=== PATIENT | male | born 1995 | race Two or more races ===

== ENCOUNTER 2017-04-01 17:20 | Emergency (ER) | payer OTHER ==
[~2017-04-01] VITALS: Ht 182.9 cm; Wt 102.1 kg
[2017-04-01 17:44] VITALS: BP 141/79
== END 2017-04-01 18:08 | disposition home or self-care (01) ==
LOC: ER 17:30
DX: F41.9 Anxiety disorder, unspecified (principal); F32.9 Major depressive disorder, single episode, unspecified; Z76.0 Encounter for issue of repeat prescription

== ENCOUNTER 2017-05-02 21:18 | Emergency (ER) | payer OTHER ==
[~2017-05-02] VITALS: Ht 185.4 cm; Wt 104.3 kg
[2017-05-02 21:30] VITALS: BP 159/88
== END 2017-05-03 02:09 | disposition home or self-care (01) ==
LOC: ER 21:18
DX: F41.9 Anxiety disorder, unspecified (principal)

== ENCOUNTER 2018-11-22 04:08 | Inpatient (IN) | payer OTHER ==
[2018-11-22] VITALS (10 sets, daily range): BP systolic 93–105; BP diastolic 46–69
[~2018-11-22] VITALS: Ht 170.2 cm; Wt 104.3 kg
[2018-11-22] MEDS ORDERED: MIDAZOLAM DRIP 50 mg/50mL 50 ML IV ONE (04:16)
[2018-11-22] MEDS ORDERED: MIDAZOLAM HCL 5 MG/ML-1ML VIAL ONE (04:16)
[2018-11-22] MEDS ORDERED: PROPOFOL 100 ML IV ONE (04:28)
[2018-11-22] MEDS: MIDAZOLAM DRIP 50 mg/50mL 50 ML IV SCH ×4 (04:39→21:58)
[2018-11-22] MEDS: PROPOFOL 100 ML IV SCH ×5 (04:45→18:37)
[2018-11-22] MEDS ORDERED: MIDAZOLAM HCL 5 MG/ML-1ML VIAL IV ONE (04:45)
[2018-11-22] MEDS ORDERED: ETOMIDATE (2MG/ML) 20ML VIAL IV ONE (04:45)
[2018-11-22] MEDS ORDERED: SUCCINYLCHOLINE CHLORIDE 20 MG/ML 10ML VIAL IV ONE (04:45)
--- NOTE | 2018-11-22 06:34 | NUR ---
RT NOTE: FIO2 DECREASED TO .45 FROM .50. PT. TOLERATING WELL. RN YENNIFER PISANO.
[2018-11-22 06:51] LABS: Basophils # (auto) 0 uL; Basophils % (auto) 0.2 % (0.0-2.0); Eosinophils # (auto) 0 uL; Hematocrit 44.2 % (41.0-53.0); Hemoglobin 14.5 g/dL (13.5-17.5); Lymphocytes % (auto) 4.7 % (10.0-50.0); Mean Corpuscular Hemoglobin 30.3 pg (28.0-32.0); Mean Corpuscular Hgb Conc. 32.9 g/dL (32.0-36.0); Monocytes # (auto) 1.3 uL; Monocytes % (auto) 6.5 % (0.0-12.0); Neutrophils # (auto) 18.3 uL; Neutrophils % (auto) 88.6 % (37.0-80.0); Platelet Count (auto) 230 10^3/uL (140-450); Red Cell Distribution Width 14.2 % (11.8-14.3); White Blood Cell 20.6 10^3/uL (4.4-10.8)
[2018-11-22 07:08] LABS: Albumin 3.7 g/dL (3.4-5.0); Anion Gap 7 (5-15); Blood Urea Nitrogen 13 mg/dL (7-18); Calcium 7.6 mg/dL (8.5-10.1); Carbon Dioxide 23 mmol/L (21-32); Chloride 109 mmol/L (98-107); Glucose 157 mg/dL (74-106); Potassium 4.5 mmol/L (3.5-5.1); Sodium 139 mmol/L (136-145)
[2018-11-22 07:09] LABS: Salicylate < 1.7 mg/dL (2.8-20.0)
[2018-11-22 07:11] LABS: BUN/Creatinine Ratio 10.6; Blood Alcohol < 3.0 mg/dL (0-5); GFR African American 96 mL/min; GFR Non-African American 79 mL/min
[2018-11-22 07:13] LABS: Acetaminophen < 2.0 ug/mL (10-30); Alanine Aminotransferase 36 U/L (16-61); Alkaline Phosphatase 73 U/L (45-117); Aspartate Aminotransferase 36 U/L (15-37); Bilirubin, Total 0.4 mg/dL (0.2-1.0); Total Protein 7.2 g/dL (6.4-8.2)
[2018-11-22] MEDS ORDERED: ONDANSETRON HCL 4 MG/2 ML VIAL IV PRN (07:45)
[2018-11-22] MEDS ORDERED: ALBUTEROL SULF 2.5 MG/0.5ML(0.5%) NEB SOLN NEB PRN (07:45)
[2018-11-22] MEDS ORDERED: SODIUM CHLORIDE 0.9% 1,000 ML IV ONE (07:45)
[2018-11-22] MEDS ORDERED: NITROGLYCERIN 0.4 MG SL TAB SL PRN (07:45)
[2018-11-22] MEDS ORDERED: ACETAMINOPHEN 325 MG TAB PO PRN (07:45)
[2018-11-22] MEDS ORDERED: MORPHINE SULF INJ 2 MG/ML SYRINGE 1ML IV PRN (07:45)
--- NOTE | 2018-11-22 08:16 | NUR ---
RT NOTE: FIO2 DECREASED TO .40 FROM .45. PENNIE PISANO. PT. TOLERATING WELL.
[2018-11-22] MEDS ORDERED: fentaNYL Drip 2500mCg/250mlNS 250 ML IV ONE (08:23)
[2018-11-22] MEDS: SODIUM CHLORIDE 0.9% 1,000 ML IV SCH ×3 (08:30→21:58)
[2018-11-22] MEDS: ACETAMINOPHEN 650 mg PER 20 mL UD GT PRN (08:40)
[2018-11-22 09:06] LABS: Lactic Acid w/Reflex 2.5 mmol/L (0.4-2.0)
[2018-11-22] MEDS: fentaNYL Drip 2500mCg/250mlNS 250 ML IV SCH (09:28)
[2018-11-22] MEDS: ENOXAPARIN SOD 40 MG/0.4 ML SYRINGE SC SCH (10:40)
[2018-11-22] MEDS: FAMOTIDINE (10MG/ML) 2ML VL IV SCH (10:40)
[2018-11-22] MEDS: LEVOFLOXACIN 500MG 100 ML IV SCH (10:40)
--- NOTE | 2018-11-22 11:15 | NUR ---
RT NOTE: PT. TRANSFERRED TO CT WITH PENNIE WHEELER FROM RADIOLOGY WITHOUT INCIDENT. DOCK BOSS IN PLACE. PT. BAGGED WITH 100% 02 AND PLACED ON ANNA VENT WHILE IN CT WITH ORDERED VENT SETTINGS. PT. PLACED BACK ON VENT IN ER 5 WITH ORDERED VENT SETTINGS.
--- NOTE | 2018-11-22 13:44 | NUR ---
RT NOTE: FIO2 DECREASED TO .30 FROM .35. PENNIE PISANO. PT. TOLERATING WELL.
[2018-11-22 16:39] LABS: Urine Amorphous Crystal FEW /hpf (None Seen); Urine Bacteria NONE SEEN /hpf (None Seen); Urine Blood Negative /uL (Negative); Urine Specific Gravity 1.014 (1.001-1.035); Urine WBC 7 /hpf (0 - 3)
[2018-11-22 16:51] LABS: Alcohol, Urine < 3.0 mg/dL (0-5); Amphetamine Screen, Urine NEGATIVE (NEGATIVE); Barbiturate Scree,Urine NEGATIVE (NEGATIVE); Benzodiazephine Screen, Urine POSITIVE (NEGATIVE); Cannabinoid Screen, Urine POSITIVE (NEGATIVE); Cocaine Screen, Urine NEGATIVE (NEGATIVE); Opiate Scree,Urine POSITIVE (NEGATIVE); Phencyclidine Screen, Urine NEGATIVE (NEGATIVE)
[2018-11-23 00:15] VITALS: BP 106/59
[2018-11-23] MEDS: PROPOFOL 100 ML IV SCH ×2 (00:26→06:25)
[2018-11-23] MEDS: MIDAZOLAM DRIP 50 mg/50mL 50 ML IV SCH (03:30)
[2018-11-23 03:55] VITALS: BP 109/45
[2018-11-23] MEDS ORDERED: ALBUMIN 5% 250 ML IV ONE ×2 (04:34→04:45)
[2018-11-23 05:48] VITALS: BP 106/55
--- NOTE | 2018-11-23 06:05 | NUR ---
Respiratory note: FIO2 DECREASED FROM 70% TO 50%. PATIENT IS TOLERATING CHANGE WELL. WILL CONTINUE TO MONITOR PATIENT.
[2018-11-23] MEDS: ACETAMINOPHEN 650 mg PER 20 mL UD GT PRN ×2 (06:36→17:04)
[2018-11-23 06:38] LABS: Basophils # (auto) 0.1 uL; Basophils % (auto) 0.5 % (0.0-2.0); Eosinophils # (auto) 0.5 uL; Eosinophils % (auto) 4.4 % (0.0-7.0); Hematocrit 39.4 % (41.0-53.0); Hemoglobin 13.1 g/dL (13.5-17.5); Lymphocytes % (auto) 16.8 % (10.0-50.0); Mean Corpuscular Hemoglobin 30.6 pg (28.0-32.0); Mean Corpuscular Hgb Conc. 33.2 g/dL (32.0-36.0); Mean Corpuscular Volume 92.2 fL (80.0-100.0); Monocytes # (auto) 1.4 uL; Neutrophils # (auto) 7.9 uL; Neutrophils % (auto) 66.3 % (37.0-80.0); Nucleated Red Blood Cells % 0.1 %; Platelet Count (auto) 195 10^3/uL (140-450); Red Blood Cells 4.27 10^6/uL (4.5-5.90); Red Cell Distribution Width 14.2 % (11.8-14.3); White Blood Cell 11.9 10^3/uL (4.4-10.8)
[2018-11-23 06:52] LABS: Potassium 3.6 mmol/L (3.5-5.1)
[2018-11-23 07:00] LABS: Albumin 3.3 g/dL (3.4-5.0); BUN/Creatinine Ratio 7.4; Bilirubin, Total 0.6 mg/dL (0.2-1.0); Calcium 7.9 mg/dL (8.5-10.1); Total Protein 6.7 g/dL (6.4-8.2)
[2018-11-23 08:24] VITALS: BP 112/44
--- NOTE | 2018-11-23 09:09 | NUR ---
Respiratory note: FIO2 TITRATED DOWN TO 45%. PENNIE LAMAS AWARE. WILL CONTINUE TO MONITOR PATIENT.
[2018-11-23] MEDS: LEVOFLOXACIN 500MG 100 ML IV SCH (09:36)
[2018-11-23] MEDS: FAMOTIDINE (10MG/ML) 2ML VL IV SCH (09:36)
[2018-11-23] MEDS: ENOXAPARIN SOD 40 MG/0.4 ML SYRINGE SC SCH (09:36)
[2018-11-23] MEDS: fentaNYL Drip 2500mCg/250mlNS 250 ML IV SCH (09:36)
--- NOTE | 2018-11-23 10:16 | NUR ---
1010 11/23/18 I received a message from [facility] Lead Project Engineer Serina-she is aware of this patient's admission. She verified that they did receive clinical information today on this member but she states that the information is for 11/22-faxed her requested labs, vitals, medication list and CXR for 11/23 to [phone]. I placed a call to Dr. Zavala to ask if this patient is stable for transfer to [facility].
--- NOTE | 2018-11-23 11:19 | NUR ---
Respiratory note: CPAP TRIAL INITIATED. PATIENT IS AWAKE AND FOLLOWING COMMANDS. CPAP SETTINGS ARE PRESSURE SUPPORT OF 7, PEEP +5, AT 35% FIO2. PER DR. TALAVERA DRAW ABG AFTER 30 MINUTES OF INITIATION OF CPAP TRIAL. PENNIE LAMAS IS AWARE. PATIENT IS TOLERATING TRIAL WELL. VITALS ARE STABLE.
--- NOTE | 2018-11-23 12:10 | NUR ---
Respiratory note: PATIENT EXTUBATED PER DR. MASON. WEANING PARAMETERS READ BACK. RSBI: 28, LEAK TEST >568, NIF -62.7, VC 1000. PATIENT WAS PLACED ON COOL MIST AEROSOL AT 10 L 40%, SP02 96%, RR 17. WILL CONTINUE TO MONITOR PATIENT. PENNIE LAMAS IS AWARE AND AT BEDSIDE.
--- NOTE | 2018-11-23 12:32 | NUR ---
1220 11/23/[address] Zavala and Dr. Caldera-patient stable for transfer to [facility]. I faxed Notice Regarding Post Stabilization to [facility] along with transfer order and MD progress notes from today 11/23/18.
[2018-11-23] MEDS ORDERED: LEVOFLOXACIN 500MG 100 ML IV ONE (13:30)
--- NOTE | 2018-11-23 15:37 | NUR ---
1530 11/23/18 I called [facility] [phone] and spoke with [employer] Serina-she did receive the transfer order and Notice Regarding Post Stabilization-they are working on the transfer of this patient-I provided her with a verbal update on the status of this patient.
[2018-11-23 20:50] VITALS: BP 124/75
[2018-11-24] MEDS ORDERED: LEVOFLOXACIN 500MG 100 ML IV SCH (10:00)
== END 2018-11-23 20:52 | disposition short-term general hospital (02) | DRG 917 ==
LOC: EDBD 04:08 → ER 04:08 → TELE 04:09 → EDUNIT# 04:09
PROVIDERS: ADMIT Nurse Practitioner; ATTEND Internal Medicine
PROC: 5A1935Z Respiratory Ventilation, Less than 24 Consecutive Hours (ICD-10-PCS; principal; 2018-11-22)
PROC: 0BH17EZ Insertion of Endotracheal Airway into Trachea, Via Natural or Artificial Opening (ICD-10-PCS; 2018-11-22)
DX: T42.4X1A Poisoning by benzodiazepines, accidental (unintentional), initial encounter (principal); I46.9 Cardiac arrest, cause unspecified; J96.00 Acute respiratory failure, unspecified whether with hypoxia or hypercapnia; G92 Toxic encephalopathy; J69.0 Pneumonitis due to inhalation of food and vomit; E87.2 Acidosis; T40.1X1A Poisoning by heroin, accidental (unintentional), initial encounter; E66.9 Obesity, unspecified; Z68.36 Body mass index [BMI] 36.0-36.9, adult; F11.90 Opioid use, unspecified, uncomplicated; D72.829 Elevated white blood cell count, unspecified; F19.10 Other psychoactive substance abuse, uncomplicated; T40.7X1A Poisoning by cannabis (derivatives), accidental (unintentional), initial encounter; Y92.89 Other specified places as the place of occurrence of the external cause
CPT/HCPCS: 36415; 36600; 70450; 71045; 72125; 80053; 80307; 80320; 80329; 81001; 82805; 83036; 83605; 85025; 87040; 87070; 87077; 87186; 87205; 94002; 94003; G0378; J1956; J2250; J2704; J3490